=== PATIENT | male | born 1970 | race Caucasian/White ===

== ENCOUNTER → 2021-10-12 | Emergency (ER) | payer MEDICAID ==
[~2021-10-12] VITALS: Ht 177.8 cm; Wt 95.3 kg
[~2021-10-12] MED LIST: FLUORESCEIN SODIUM 1 MG OPHTHALMIC STRIP OP ONE; OFLO5DRO6 EACH EYE; OLOP5DRO20 OP; PROPARACAINE (OPTHANINE 0.5%) 15 ML DROPS OP ONE; cefTRIAXone 1 GM in LIDOCAINE 1%, 20 ML MDV 2.1 ML IM ONE
--- NOTE | 2021-10-12 12:15 | NUR ---
pt placed in bed 7. report to Matt SIM.
--- NOTE | 2021-10-12 12:16 | NUR ---
ERMD AT BEDSIDE
[2021-10-12 12:18] VITALS: BP_SYST 140
[2021-10-12 14:12] LABS: BASOPHILS # (AUTO) 0.1 K/uL (0.0-0.2); BASOPHILS % (AUTO) 0.7 % (0.0-2.0); EOSINOPHILS # (AUTO) 0.1 K/uL (0.0-0.4); EOSINOPHILS % (AUTO) 1.2 % (0.0-4.0); HEMOGLOBIN 16.4 g/dL (14.0-18.0); LYMPHOCYTES # (AUTO) 2.5 K/uL (1.0-5.5); LYMPHOCYTES % (AUTO) 28.4 % (20.5-51.5); MEAN CORPUSCULAR HEMOGLOBIN 30 pg (27-31); MEAN CORPUSCULAR HGB CONC 34 % (32-36); MEAN CORPUSCULAR VOLUME 88 fL (79.0-98.0); MONOCYTES # (AUTO) 0.6 K/uL (0.0-1.0); MONOCYTES % (AUTO) 6.9 % (1.7-9.3); NEUTROPHILS # (AUTO) 5.4 K/uL (1.8-7.7); NEUTROPHILS % (AUTO) 62.8 % (40.0-70.0); PLATELET COUNT (AUTO) 225 K/uL (130-430); RED BLOOD CELL COUNT(AUTO) 5.56 MIL/uL (4.2-6.2); WHITE BLOOD COUNT (AUTO) 8.7 K/uL (4.8-10.8)
[2021-10-12 14:16] LABS: CALCIUM 8.6 mg/dL (8.4-11.0); CREATININE 0.89 mg/dL (0.55-1.30); POTASSIUM 4.9 mmol/L (3.5-5.1)
[2021-10-12 14:33] LABS: ALBUMIN 3.2 g/dL (3.4-4.8); C-REACTIVE PROTEIN QUANT 0.5 mg/dL (0-0.5); TOTAL BILIRUBIN 0.5 mg/dL (0.0-1.0)
--- NOTE | 2021-10-12 14:42 | NUR ---
Patient given written and verbal discharge instructions and verbalizes understanding. ER MD discussed with patient the results and treatment provided. Patient in stable condition. Opportunity for questions provided and answered. Medication side effect fact sheet provided.
--- NOTE | 2021-10-12 14:43 | NUR ---
A/OX4 VSS VERBALIZED UNDERSTANDING OF DC INSTRUCTIONS, ALL QUESTIONS ANSWERED, NO REACTION TO ATB, AT BEDSIDE.
== END | disposition home or self-care (01) ==
LOC: SED 11:33
DX: H10.9 Unspecified conjunctivitis (principal)
CPT/HCPCS: 36415; 80053; 85025; 86140; 96372; 99283; J0696; J2001

== ENCOUNTER 2021-10-13 08:22 | Emergency (ER) | payer MEDICAID ==
[~2021-10-13] VITALS: Ht 177.8 cm; Wt 95.3 kg
[~2021-10-13 08:22] MED LIST changes: -FLUORESCEIN SODIUM 1 MG OPHTHALMIC STRIP OP ONE; -PROPARACAINE (OPTHANINE 0.5%) 15 ML DROPS OP ONE; -cefTRIAXone 1 GM in LIDOCAINE 1%, 20 ML MDV 2.1 ML IM ONE
[2021-10-13 08:45] VITALS: BP_SYST 97
--- NOTE | 2021-10-13 08:45 | NUR ---
PT TRIAGED AND PLACED IN ED MD SHALOM AWARE OF MSE NEEDS
--- NOTE | 2021-10-13 09:02 | NUR ---
ER DR. SIEGEL EXAMINING PT IN ED LOBBY
--- NOTE | 2021-10-13 09:33 | NUR ---
Patient to ER bed 4 to gown for evaluation. Side rails up. Report given to RONEY WALTER.
[2021-10-13 10:04] LABS: ANION GAP 4 (5-15); CALCIUM 8.2 mg/dL (8.4-11.0); CHLORIDE 99 mmol/L (98-107); CREATININE 0.79 mg/dL (0.55-1.30); GLUCOSE 367 mg/dL (70-99); POTASSIUM 4.9 mmol/L (3.5-5.1); SODIUM SERUM 133 mmol/L (136-145); UREA NITROGEN, BLOOD 17 mg/dL (8-21)
[2021-10-13 10:07] LABS: BASOPHILS % (AUTO) 0.6 % (0.0-2.0); EOSINOPHILS # (AUTO) 0.1 K/uL (0.0-0.4); EOSINOPHILS % (AUTO) 1.2 % (0.0-4.0); HEMATOCRIT 46.4 % (36-54); HEMOGLOBIN 15.8 g/dL (14.0-18.0); LYMPHOCYTES # (AUTO) 2.3 K/uL (1.0-5.5); MEAN CORPUSCULAR HEMOGLOBIN 30 pg (27-31); MEAN CORPUSCULAR HGB CONC 34 % (32-36); MEAN CORPUSCULAR VOLUME 88 fL (79.0-98.0); MONOCYTES # (AUTO) 0.5 K/uL (0.0-1.0); MONOCYTES % (AUTO) 6.3 % (1.7-9.3); NEUTROPHILS # (AUTO) 4.8 K/uL (1.8-7.7); NEUTROPHILS % (AUTO) 61.9 % (40.0-70.0); PLATELET COUNT (AUTO) 209 K/uL (130-430); RED BLOOD CELL COUNT(AUTO) 5.31 MIL/uL (4.2-6.2); WHITE BLOOD COUNT (AUTO) 7.8 K/uL (4.8-10.8)
[2021-10-13 10:09] LABS: GFR AFRICAN AMERICAN 132 mL/min (>90)
[2021-10-13 10:10] LABS: TOTAL BILIRUBIN 0.7 mg/dL (0.0-1.0)
[2021-10-13 10:11] LABS: ALANINE AMINOTRANSFERASE 14 U/L (12-78); ALBUMIN 3.2 g/dL (3.4-4.8); AMYLASE 64 U/L (0-100); ASPARTATE AMINOTRANSFERASE 12 U/L (10-37)
[2021-10-13 10:14] LABS: ACETONE, SERUM NEGATIVE (NEGATIVE)
[2021-10-13] MEDS ORDERED: INSULIN NPH/REGULAR 70-30, 100 UNITS/ML, 10 ML VIAL SUBCUT ONE (11:00)
[2021-10-13 11:10] VITALS: BP_SYST 131
--- NOTE | 2021-10-13 11:10 | NUR ---
PT DISCHARGED GIVEN AFTER CARE INSTRUCTIONS. ALL QUESTIONS ANSWERED. VSS. NAD NOTED. WRIST BAND REMOVED. END OF CARE.
== END 2021-10-13 11:10 | disposition home or self-care (01) ==
LOC: SED 08:22
DX: R73.9 Hyperglycemia, unspecified (principal); Z79.899 Other long term (current) drug therapy
CPT/HCPCS: 36415; 80053; 82009; 82150; 83036; 83605; 85025; 96372; 99283; J1815